=== PATIENT | male | born 1990 | race African-American/Black ===

== ENCOUNTER 2023-06-09 07:00 | Emergency (ER) | payer SELFPAY ==
[2023-06-09] MEDS ORDERED: Boostrix 0.5 ML (Tdap) VIAL (>/=7 yrs of age) ONE (07:28)
[2023-06-09] MEDS ORDERED: CEFAZOLIN 1 GM VIAL ONE (07:28)
== END 2023-06-09 08:10 | disposition left against medical advice (07) ==
LOC: MADERS 07:00
DX: S62.634B Displaced fracture of distal phalanx of right ring finger, initial encounter for open fracture (principal); F17.210 Nicotine dependence, cigarettes, uncomplicated; X83.8XXA Intentional self-harm by other specified means, initial encounter; Z23 Encounter for immunization
CPT/HCPCS: 90471; 90715; 96372; J0690